=== PATIENT | female | born 1970 | race Caucasian/White ===

== ENCOUNTER → 2017-04-17 | Outpatient (CLI) | payer OTHER ==
[~2017-04-17] MED LIST: FLEXERIL10 MG PO; HCTZ/TRIAMTEREN1 CAP PO; PREDNISONE 20MG20 MG PO
[2017-04-19 08:50] LABS: HBsAg Screen Negative (Negative); Hep A Ab, IgM Negative (Negative); Hep B Core Ab, IgM Negative (Negative); Hep C Virus Ab <0.1 (0.0-0.9)
== END ==
LOC: LAB 15:42
PROVIDERS: Internal Medicine Adolescent Medicine
DX: Z20.5 Contact with and (suspected) exposure to viral hepatitis (principal)